=== PATIENT | female | born 1995 | race Two or more races ===

== ENCOUNTER 2023-11-01 14:51 | Emergency (ER) | payer SELFPAY ==
[2023-11-01 17:52] LABS: APPEARANCE,URINE CLEAR; BILIRUBIN,URINE NEGATIVE (NEGATIVE); COLOR,URINE YELLOW; GLUCOSE,URINE NEGATIVE (NEGATIVE); KETONES,URINE NEGATIVE (NEGATIVE); LEUKOCYTE ESTERASE,URINE LARGE (NEGATIVE); NITRITE,URINE NEGATIVE (NEGATIVE); OCCULT BLOOD,URINE NEGATIVE (NEGATIVE); PROTEIN,URINE NEGATIVE (NEGATIVE); UROBILINOGEN,URINE 0.2 EU/dL (<2.0)
[2023-11-01 18:00] LABS: BACTERIA,URINE FEW (NEGATIVE); EPITHELIAL CELLS,URINE MODERATE (NONE-FEW)
== END 2023-11-01 20:28 | disposition home or self-care (01) ==
LOC: MW.ED 14:51
DX: T83.32XA Displacement of intrauterine contraceptive device, initial encounter (principal); N30.00 Acute cystitis without hematuria
CPT/HCPCS: 58301; 76830; 76830-26; 81001; 81025; 87086; 99283; 99284-25

== ENCOUNTER 2023-12-31 15:08 | Emergency (ER) | payer MEDICAID ==
[2023-12-31] MEDS: Sodium Chloride 0.9% 1,000 ML IV ONE (15:48)
[2023-12-31] MEDS: Ondansetron 4 MG/2 ML SDV IVPUSH ONE (15:48)
[2023-12-31 15:54] LABS: BASOPHILS ABSOLUTE AUTO 0.01 K/uL (0.00-0.20); BASOPHILS PERCENT AUTO 0.1 % (0.0-1.0); EOSINOPHILS PERCENT AUTO 1.8 % (0.0-6.0); HEMATOCRIT 34.7 % (37.0-47.0); HEMOGLOBIN 12.3 g/dL (12.0-16.0); IMMATURE GRAN ABSOLUTE AUTO 0.05 K/uL (0.00-0.05); IMMATURE GRAN PERCENT AUTO 0.5 % (0.0-0.4); LYMPHOCYTES ABSOLUTE AUTO 2.15 K/uL (1.00-4.80); LYMPHOCYTES PERCENT AUTO 19.5 % (24.0-44.0); MEAN CORPUSCULAR HEMOGLOBIN 31.2 pg (28.0-32.0); MEAN CORPUSCULAR HGB CONC 35.4 g/dL (32.0-36.0); MEAN CORPUSCULAR VOLUME 88.1 fL (83.0-99.0); MEAN PLATELET VOLUME 10.6 fL (9.4-12.3); MONOCYTES ABSOLUTE AUTO 0.92 K/uL (0.00-0.80); MONOCYTES PERCENT AUTO 8.3 % (0.0-8.0); NEUTROPHILS ABSOLUTE AUTO 7.72 K/uL (1.80-7.70); NEUTROPHILS PERCENT AUTO 69.8 % (41.0-71.0); PLATELET COUNT,PLT 197 K/uL (150-400); RED BLOOD CELL COUNT 3.94 M/uL (4.10-5.30); WHITE BLOOD CELL COUNT,WBC 11.05 K/uL (3.9-11.3)
[2023-12-31 16:22] LABS: A/G RATIO 1.1 (0.9-1.6); ALBUMIN 3.9 g/dL (3.4-5.0); BILIRUBIN TOTAL 0.4 mg/dL (0.2-1.0); CALCIUM 9.2 mg/dL (8.5-10.1); CARBON DIOXIDE,CO2 24.1 mmol/L (21.0-32.0); CREATININE 0.7 mg/dL (0.6-1.0); EST CRCL DRUG DOSING (CG) 114.01 mL/min; PROTEIN TOTAL,TP 7.3 g/dL (6.4-8.2)
[2023-12-31 16:31] LABS: APPEARANCE,URINE SLT CLOUDY; BILIRUBIN,URINE NEGATIVE (NEGATIVE); COLOR,URINE YELLOW; GLUCOSE,URINE NEGATIVE (NEGATIVE); KETONES,URINE 40 mg/dL (NEGATIVE); LEUKOCYTE ESTERASE,URINE SMALL (NEGATIVE); NITRITE,URINE NEGATIVE (NEGATIVE); OCCULT BLOOD,URINE MODERATE (NEGATIVE); PH,URINE 6.5 (5.0-8.0); PROTEIN,URINE NEGATIVE (NEGATIVE)
[2023-12-31 16:42] LABS: BACTERIA,URINE 2+ (NEGATIVE); EPITHELIAL CELLS,URINE FEW (NONE-FEW); MUCUS,URINE LIGHT (NONE-MOD); TRICHOMONAS,URINE PRESENT (NEGATIVE)
== END 2023-12-31 18:34 | disposition home or self-care (01) ==
LOC: MW.ED 15:08
DX: O98.311 Other infections with a predominantly sexual mode of transmission complicating pregnancy, first trimester (principal); A59.03 Trichomonal cystitis and urethritis; O21.9 Vomiting of pregnancy, unspecified; Z3A.01 Less than 8 weeks gestation of pregnancy
CPT/HCPCS: 36415; 76817; 80053; 81001; 81025; 85025; 96361; 96374; 99284; J2405; J7030

== ENCOUNTER 2024-01-01 19:50 | Emergency (ER) | payer MEDICAID ==
[2024-01-01 20:46] LABS: BASOPHILS ABSOLUTE AUTO 0.02 K/uL (0.00-0.20); BASOPHILS PERCENT AUTO 0.2 % (0.0-1.0); EOSINOPHILS ABSOLUTE AUTO 0.35 K/uL (0.00-0.45); EOSINOPHILS PERCENT AUTO 3.1 % (0.0-6.0); HEMATOCRIT 34.5 % (37.0-47.0); HEMOGLOBIN 12.3 g/dL (12.0-16.0); IMMATURE GRAN ABSOLUTE AUTO 0.04 K/uL (0.00-0.05); IMMATURE GRAN PERCENT AUTO 0.4 % (0.0-0.4); LYMPHOCYTES ABSOLUTE AUTO 2.31 K/uL (1.00-4.80); LYMPHOCYTES PERCENT AUTO 20.6 % (24.0-44.0); MEAN CORPUSCULAR HEMOGLOBIN 31.6 pg (28.0-32.0); MEAN CORPUSCULAR HGB CONC 35.7 g/dL (32.0-36.0); MEAN CORPUSCULAR VOLUME 88.7 fL (83.0-99.0); MEAN PLATELET VOLUME 10.8 fL (9.4-12.3); MONOCYTES ABSOLUTE AUTO 0.71 K/uL (0.00-0.80); MONOCYTES PERCENT AUTO 6.3 % (0.0-8.0); NEUTROPHILS ABSOLUTE AUTO 7.76 K/uL (1.80-7.70); NEUTROPHILS PERCENT AUTO 69.4 % (41.0-71.0); PLATELET COUNT,PLT 195 K/uL (150-400); RED BLOOD CELL COUNT 3.89 M/uL (4.10-5.30); WHITE BLOOD CELL COUNT,WBC 11.19 K/uL (3.9-11.3)
[2024-01-01 21:32] LABS: A/G RATIO 1.1 (0.9-1.6); ALBUMIN 3.6 g/dL (3.4-5.0); BILIRUBIN TOTAL 0.3 mg/dL (0.2-1.0); CALCIUM 9.3 mg/dL (8.5-10.1); CARBON DIOXIDE,CO2 23.6 mmol/L (21.0-32.0); CREATININE 0.6 mg/dL (0.6-1.0); EST CRCL DRUG DOSING (CG) 117.54 mL/min; POTASSIUM,K 3.9 mmol/L (3.5-5.1)
== END 2024-01-01 23:28 | disposition home or self-care (01) ==
LOC: MW.ED 19:50
DX: O20.0 Threatened abortion (principal); Z3A.01 Less than 8 weeks gestation of pregnancy
CPT/HCPCS: 36415; 76801; 76801-26; 80053; 84702; 85025; 86900; 86901; 99284

== ENCOUNTER 2024-08-18 04:06 | Inpatient (IN) | payer MEDICAID ==
[2024-08-18] MEDS ORDERED: Sodium Chloride 0.9% 20 ML SDV IV PRN ×2 (04:48→04:51)
[2024-08-18] MEDS ORDERED: Sodium Chloride 0.9% 10 ML Syringe FLUSH PRN ×2 (04:48→04:51)
[2024-08-18] MEDS ORDERED: Sodium Chloride 0.9% 2.5 ML Syringe FLUSH PRN ×2 (04:48→04:51)
[2024-08-18] MEDS ORDERED: Water For Irrigation,Sterile 1,000 ML Container IRR PRN (04:51)
[2024-08-18] MEDS ORDERED: Methylergonovine 0.2 MG/1 ML Amp IM PRN (04:51)
[2024-08-18] MEDS ORDERED: Lidocaine 1% 50 ML MDV INJECT PRN (04:51)
[2024-08-18] MEDS ORDERED: Carboprost Tromethamine 250 MCG/1 mL Vial IM PRN (04:51)
[2024-08-18] MEDS ORDERED: Butorphanol 2 MG/ML SDV IVPUSH PRN (04:51)
[2024-08-18] MEDS: Lactated Ringers 1,000 ML IV SCH ×2 (05:00→05:53)
[2024-08-18 05:18] LABS: HEMATOCRIT 33.7 % (37.0-47.0); HEMOGLOBIN 10.9 g/dL (12.0-16.0); MEAN CORPUSCULAR HEMOGLOBIN 26.7 pg (28.0-32.0); MEAN CORPUSCULAR HGB CONC 32.3 g/dL (32.0-36.0); MEAN CORPUSCULAR VOLUME 82.4 fL (83.0-99.0); MEAN PLATELET VOLUME 10.4 fL (9.4-12.3); PLATELET COUNT,PLT 226 K/uL (150-400); RED BLOOD CELL COUNT 4.09 M/uL (4.10-5.30); WHITE BLOOD CELL COUNT,WBC 11.31 K/uL (3.9-11.3)
[2024-08-18] MEDS: Ropivacaine HCl/PF 400 MG in Premix Bag 1 BAG EPIDUR SCH (09:00)
[2024-08-18] MEDS ORDERED: ePHEDrine 50 MG/ML SDV IVPUSH PRN (09:10)
[2024-08-18] MEDS ORDERED: ePHEDrine 50 MG/ML SDV IM PRN (09:10)
[2024-08-18] MEDS ORDERED: dexmedeTOMIDine HCl 200 MCG/2 ML SDV EPIDUR SCH (09:15)
[2024-08-18] MEDS: Phenylephrine HCl In 0.9% NaCl 1 MG/10 ML Syringe IVPUSH PRN (09:56)
[2024-08-18] MEDS: Ropivacaine HCl/PF 200 ML ONE (10:23)
[2024-08-18] MEDS: Bupivacaine 0.5% 10 ML SDV ONE (10:23)
[2024-08-18] MEDS: Phenylephrine HCl In 0.9% NaCl 1 MG/10 ML Syringe ONE (10:23)
[2024-08-18] MEDS: Bupivacaine 0.5% 10 ML SDV INJECT ONE (10:24)
[2024-08-18] MEDS: Oxytocin/0.9 % Sodium Chloride 30 UNIT/500 ML BAG IV SCH ×2 (10:56→19:55)
[2024-08-18] MEDS ORDERED: Lactated Ringers 1,000 ML IRR SCH (18:00)
[2024-08-18] MEDS ORDERED: Docusate Sodium 100 MG Cap PO PRN (18:40)
[2024-08-18] MEDS ORDERED: diphenhydrAMINE 50 MG Cap PO PRN (18:40)
[2024-08-18] MEDS ORDERED: Simethicone 80 MG Tab.Chew PO PRN (18:40)
[2024-08-18] MEDS ORDERED: Measles, Mumps & Rubella Vaccine 0.5 ML SDV SUBCUT ONE (18:40)
[2024-08-18] MEDS ORDERED: Misoprostol 200 MCG Tab PO PRN (18:43)
[2024-08-18] MEDS: Misoprostol 200 MCG Tab PO PRN (20:05)
[2024-08-18] MEDS ORDERED: Oxytocin/0.9 % Sodium Chloride 30 UNIT/500 ML BAG ONE (20:14)
[2024-08-18 20:21] LABS: PH,UMBILICAL ARTERIAL 7.341 (7.18-7.38); PH,UMBILICAL VENOUS 7.304 (7.25-7.45)
[2024-08-18] MEDS: Witch Hazel Medicated Pads 40/Jar TOP PRN (21:17)
[2024-08-18] MEDS: Benzocaine/Menthol 20%-0.5% Spray 78 GM Cannister TOP PRN (21:17)
[2024-08-18] MEDS: Ibuprofen 800 MG Tab PO PRN (21:17)
[2024-08-18] MEDS: Acetaminophen 500 MG Tab PO PRN (21:18)
[2024-08-19 05:45] LABS: HEMATOCRIT 26.1 % (37.0-47.0); HEMOGLOBIN 8.6 g/dL (12.0-16.0); MEAN CORPUSCULAR HEMOGLOBIN 26.9 pg (28.0-32.0); MEAN CORPUSCULAR VOLUME 81.6 fL (83.0-99.0); MEAN PLATELET VOLUME 10.8 fL (9.4-12.3); PLATELET COUNT,PLT 185 K/uL (150-400); WHITE BLOOD CELL COUNT,WBC 20.37 K/uL (3.9-11.3)
[2024-08-19] MEDS: Lanolin 100% Cream 7 GM Tube TOP PRN (10:09)
== END 2024-08-20 14:05 | disposition home or self-care (01) | DRG 807 ==
LOC: EEVIPCON → MW.OBCHECK 04:06 → MW.OB 04:07 → MW.OBCHECK 04:48 → OBSVTOIN 19:50 → MW.OB 22:34
PROVIDERS: ADMIT Obstetrics & Gynecology; ATTEND Obstetrics & Gynecology
PROC: 10E0XZZ Delivery of Products of Conception, External Approach (ICD-10-PCS; principal; 2024-08-18)
PROC: 0HQ9XZZ Repair Perineum Skin, External Approach (ICD-10-PCS; 2024-08-18)
PROC: 3E0R3BZ Introduction of Anesthetic Agent into Spinal Canal, Percutaneous Approach (ICD-10-PCS; 2024-08-18)
PROC: 00HU33Z Insertion of Infusion Device into Spinal Canal, Percutaneous Approach (ICD-10-PCS; 2024-08-18)
PROC: 10H07YZ Insertion of Other Device into Products of Conception, Via Natural or Artificial Opening (ICD-10-PCS; 2024-08-18)
PROC: 10H073Z Insertion of Monitoring Electrode into Products of Conception, Via Natural or Artificial Opening (ICD-10-PCS; 2024-08-18)
PROC: 4A1HXCZ Monitoring of Products of Conception, Cardiac Rate, External Approach (ICD-10-PCS; 2024-08-18)
DX: O36.8130 Decreased fetal movements, third trimester, not applicable or unspecified (principal); Z37.0 Single live birth; O69.1XX0 Labor and delivery complicated by cord around neck, with compression, not applicable or unspecified; O70.0 First degree perineal laceration during delivery; O99.02 Anemia complicating childbirth; O76 Abnormality in fetal heart rate and rhythm complicating labor and delivery; Z3A.39 39 weeks gestation of pregnancy
CPT/HCPCS: 01967; 36415; 51702; 59025; 59409; 82803; 82947; 85027; 86592; 86850; 86900; 86901; A9270-GY; J0665; J2371; J2590; J2795; J7120